=== PATIENT | female | born 1975 | race Caucasian/White ===

== ENCOUNTER 2022-10-21 16:49 | Emergency (ER) | payer BC, SELFPAY ==
[2022-10-21 16:58] VITALS: BP 130/99; PULSE 78; RESP 16; TEMP 37.1; O2SAT 100
--- NOTE | 2022-10-21 16:58 | ED.GENADULT ---
HPI - General Adult General Chief complaint: Skin/Abscess/Foreign Body Stated complaint: Insect Bite/Skin Sore Source: patient and RN notes reviewed History of Present Illness HPI narrative: 47 yo F presents to urgent care with complaints of a possible tick head still retained in her back. Pt states she noticed the tick on her back this past Thursday and believes it could have been on there since last Thursday. Pt states the tick was removed on Thursday but the area has been itching and sometimes burning ever since. Denies any drainage from the area. Denies any fevers, chills, vomiting, or other symptoms. Pt has not applied any medication to the area. Related Data Home Medications Medication Instructions Recorded Confirmed atorvastatin 10 mg tablet mg 10/21/22 bupropion HCl 150 mg 24 hr tablet, mg PO 10/21/22 extended release topiramate 50 mg tablet mg 10/21/22 Allergies Allergy/AdvReac Type Severity Reaction Status Date / Time Penicillins Allergy Unknown Verified 12/30/16 13:15 Review of Systems Review of Systems: Pertinent positives and pertinent negatives per HPI. PMFSH Comments At the time of my signature, I reviewed and agree with the nursing past medical, surgical, social, and family history. There is no relevant family history pertinent to the patient complaint. Exam Narrative: GENERAL: This is a well-nourished, well-developed patient, in no apparent distress. HEAD: normocephalic, atraumatic. EYES: Sclera clear/white. Vision is grossly intact. EARS: External ears normal, auditory canals clear and without drainage. Hearing grossly intact. NECK: Neck supple, non-tender without lymphadenopathy, masses or thyromegaly. CARDIOVASCULAR: Regular rate RESPIRATORY: No respiratory distress SKIN: warm, intact with no suspicious lesions or rash, good texture and turgor. <0.5 cm scab-like lesion to left upper back where pt reports a tick was removed. NEURO: awake, alert, and oriented to person, place and time. There were no obvious focal neurologic abnormalities. BACK: Nontender without deformity or crepitus. No flank tenderness. Course Course Level of Care: Express Care Visit Vital Signs Vital signs: reviewed. Procedures Foreign Body Removal Foreign Body #1: Foreign Body Removal Date: 10/21/22 Foreign Body Removal Time: 17:03 Time Out Performed: yes Site: other (left upper back) Description of foreign body: other (scab) Sedation/Analgesia: other (lidocaine 1%) Technique: incision made to facilitate removal (removal with tweezers) Confirmed by:: direct visualization and palpation Complications: none Post-procedure exam: awake, alert Neurovascular: no change from pre-procedure Medical Decision Making MDM Narrative Medical decision making narrative: May apply antibiotic ointment, such as Neosporin, to bite x 3 days. If you notice any signs of rash, fevers, vomiting, etc, be seen by a provider. Differential Diagnosis Differential Diagnosis: retained tick head, cellulitis, scab Critical Care Time Critical Care Time Critical Care Time: No Discharge Plan Discharge Clinical Impression: Tick bite Qualifiers: Encounter type: initial encounter Site of tick bite: thoracic wall Front or back of thoracic wall: back Thoracic wall location detail: left Qualified Code(s): S20.462A - Insect bite (nonvenomous) of left back wall of thorax, initial encounter Patient Disposition: Home, Self-Care Condition: Stable Instructions: Tick Bite (ED) Additional Instructions: May apply antibiotic ointment, such as Neosporin, to bite x 3 days. If you notice any signs of rash, fevers, vomiting, etc, be seen by a provider. Prescriptions: No Action atorvastatin 10 mg tablet bupropion HCl 150 mg tablet extended release 24 hr PO topiramate 50 mg tablet Follow-up/Referrals: Ankit,MD Kailyn [Prim[facility]
== END 2022-10-21 17:14 | disposition home or self-care (01) ==
PROVIDERS: Emergency Provider Nurse Practitioner Family; PCP Internal Medicine
DX: S20.462A Insect bite (nonvenomous) of left back wall of thorax, initial encounter (principal); B96.89 Other specified bacterial agents as the cause of diseases classified elsewhere; W57.XXXA Bitten or stung by nonvenomous insect and other nonvenomous arthropods, initial encounter
CPT/HCPCS: 99202; G0463